=== PATIENT | male | born 1985 | race Caucasian/White ===

== ENCOUNTER 2017-05-08 13:46 | Emergency (ER) | payer SELFPAY ==
[2017-05-08 14:42] VITALS: BP 136/92
--- NOTE | 2017-05-08 14:53 | UC ---
Lower Extremity/Ankle HPI - History of Current Complaint Chief Complaint: UCLowerExtremity Stated Complaint: FOOT INJURY Time Seen by Provider: 05/08/17 14:44 Hx Obtained From: Patient Onset/Duration: Sudden Onset - struck top of foot on something hard "like a brick" today while shoveling Severity Initially: Moderate Severity Currently: Moderate Pain Intensity: 5 Aggravating Factor(s): Standing, Ambulation Alleviating Factor(s): Rest, Elevation Able to Bear Weight: Yes - with pain - Allergies/Home Medications Allergies/Adverse Reactions: Allergies Allergy/AdvReac Type Severity Reaction Status Date / Time No Known Allergies Allergy Verified 05/08/17 14:42 Home Medications: Home Medications NK [No Home Medications Reported] 05/08/17 [History Confirmed 05/08/17] PMH/Surg Hx/FS Hx/Imm Hx Previously Healthy: Yes GI/ History: Other - states crohns Other GI/ History: states crohns - Surgical History Surgical History: Yes Surgery Procedure, Year, and Place: APPENDECTOMY 2008/LAPROSCOPY/COLON RESECTION Other Surgical History: Appendectomy. Last colonoscopy done 2 years ago. It showed Crohn's flare-ups. "They want to take some of my lower and upper intestine out." He wanted to wait. - Family History Known Family History: Positive: None - pt denies a significant FHx - Social History Occupation: Unemployed Lives: With Family Alcohol Use: None Alcohol Amount: 1 drink/ week Substance Use Type: Marijuana Substance Use Comment - Amount & Last Used: last over 1 week ago Smoking Status (MU): Light Every Day Tobacco Smoker Type: Cigarettes Amount Used/How Often: 1/2 pack per day Length of Time of Smoking/Using Tobacco: since age of [age] years old Have You Smoked in the Last Year: Yes Household Exposure Type: Cigarettes Cessation Counseling: Patient Advised to Stop - Immunization History Most Recent Influenza Vaccination: never Most Recent Tetanus Shot: 2008 Most Recent Pneumonia Vaccination: never Review of Systems Constitutional: Negative Respiratory: Negative Cardiovascular: Negative Musculoskeletal: Other: - R foot pain Neurological: Negative Psychological: Negative Is Patient Immunocompromised?: No All Other Systems Reviewed And Are Negative: Yes Physical Exam Triage Information Reviewed: Yes Appearance: Well-Appearing, No Pain Distress, Well-Nourished Vital Signs: Initial Vital Signs Temp 98.6 F 05/08/17 14:38 Pulse 99 05/08/17 14:38 Resp 12 05/08/17 14:38 BP 136/92 05/08/17 14:38 Pulse Ox 99 05/08/17 14:38 Vital Signs Reviewed: Yes Respiratory Exam: Normal Cardiovascular Exam: Normal Musculoskeletal: Positive: Strength Intact, ROM Limited @ - R foot Neurological Exam: Normal Skin Exam: Normal Diagnostics - Radiology No standard instances Xray Interpretation: No Acute Changes - reviewed xray and radiology report Lower Extremity Course/Dx - Differential Dx/Diagnosis Differential Diagnosis/HQI/PQRI: Contusion, Fracture (Closed), Sprain Provider Diagnoses: contusion R foot Discharge - Discharge Plan Condition: Good Disposition: HOME Patient Education Materials: Contusion in Adults (ED) Referrals: Lennie Mccormick MD [Primary Care Provider] - 3 Days (if no better) Additional Instructions: Ice and elevate foot wear orthopedic shoe for 3-5 days ibuprofen 600mg every 6 hours as needed for pain (take with food)
--- NOTE | 2017-05-08 15:24 | RAD ---
HISTORY: Right foot trauma COMPARISONS: None VIEWS: 3, Frontal, lateral, and oblique views of the right foot FINDINGS: BONE DENSITY: Normal. BONES: There is no displaced fracture. JOINTS: There is no arthropathy. ALIGNMENT: There is no dislocation. SOFT TISSUES: Unremarkable. OTHER FINDINGS: None. IMPRESSION: NO ACUTE OSSEOUS INJURY. IF SYMPTOMS PERSIST, RECOMMEND REPEAT IMAGING.
== END 2017-05-08 15:50 | disposition home or self-care (01) ==
LOC: UCEAST 13:46
DX: S90.31XA Contusion of right foot, initial encounter (principal); F17.210 Nicotine dependence, cigarettes, uncomplicated; W22.8XXA Striking against or struck by other objects, initial encounter; Y93.H1 Activity, digging, shoveling and raking; Y92.9 Unspecified place or not applicable
CPT/HCPCS: 99212; G0463